=== PATIENT | female | born 1960 | race African-American/Black ===

== ENCOUNTER → 2023-06-04 | Outpatient (CLI) | payer OTHER ==
[~2023-06-04] MED LIST: CLIN300C70 PO; HYDR-4833 PO; LOSA50TA46 PO; SACC250C PO
[2023-06-04 11:33] LABS: Urine Bacteria MOD /hpf (None Seen); Urine Blood 3+ /uL (Negative); Urine Clarity CLOUDY (Clear); Urine Color Yellow (Yellow); Urine Mucus FEW (None Seen); Urine Protein, UAD 1+ (Negative); Urine Specific Gravity 1.027 (1.001-1.035); Urine Urobilinogen Normal (Negative); Urine WBC 35 /hpf (0 - 5)
[2023-06-04 11:47] LABS: Chloride 111 mmol/L (98-107); Potassium 4.4 mmol/L (3.5-5.1); Sodium 140 mmol/L (136-145)
[2023-06-04 11:48] LABS: Anion Gap 7 (5-15); Calcium 9.3 mg/dL (8.5-10.1); Carbon Dioxide 22 mmol/L (20-30)
[2023-06-04 11:53] LABS: BUN/Creatinine Ratio 13.3 (10.0-20.0); Blood Urea Nitrogen 13 mg/dL (9-23); Glucose 103 mg/dL (74-106); Triglycerides 62 mg/dL (< 150)
[2023-06-04 11:54] LABS: LDL Cholesterol 84 mg/dL (< 100)
[2023-06-04 11:55] LABS: Cholesterol 182 mg/dL (< 200); HDL Cholesterol 77 mg/dL (40-59)
== END | disposition home or self-care (01) ==
LOC: LAB 10:59
PROVIDERS: ATTEND Internal Medicine
DX: I12.9 Hypertensive chronic kidney disease with stage 1 through stage 4 chronic kidney disease, or unspecified chronic kidney disease (principal); N18.31 Chronic kidney disease, stage 3a; E89.2 Postprocedural hypoparathyroidism; E66.01 Morbid (severe) obesity due to excess calories
CPT/HCPCS: 36415; 80048; 80061; 81001; 82306

== ENCOUNTER → 2023-07-18 | Outpatient (CLI) | payer OTHER ==
[2023-07-18 14:13] LABS: Protein, Urine 29.7 mg/dL (0.0-11.9)
[2023-07-18 14:16] LABS: Creatinine, Urine 63.14 mg/dL (30.0-125.0); Urine Protein/Creatinine Ratio 0.47
[2023-07-18 14:24] LABS: Urine Bacteria FEW /hpf (None Seen); Urine Blood 2+ /uL (Negative); Urine Clarity HAZY (Clear); Urine Color Colorless (Yellow); Urine Protein, UAD TRACE (Negative); Urine Specific Gravity 1.013 (1.001-1.035); Urine Urobilinogen Normal (Negative); Urine WBC 9 /hpf (0 - 5); Urine pH 6.5 (5.0-8.0)
== END | disposition home or self-care (01) ==
LOC: LAB 13:43
PROVIDERS: ATTEND Internal Medicine
DX: Z12.11 Encounter for screening for malignant neoplasm of colon (principal); N39.0 Urinary tract infection, site not specified; R80.9 Proteinuria, unspecified
CPT/HCPCS: 81001; 82570; 84156; 87086

== ENCOUNTER → 2023-08-14 | Outpatient (CLI) | payer OTHER | END | disposition home or self-care (01) | LOC: LAB 13:09 | PROVIDERS: ATTEND Internal Medicine | DX: Z12.11 Encounter for screening for malignant neoplasm of colon (principal) | CPT/HCPCS: 82270 ==

== ENCOUNTER 2024-01-06 10:50 | Emergency (ER) | payer OTHER ==
[~2024-01-06] VITALS: Ht 154.9 cm; Wt 145.0 kg
[~2024-01-06 10:50] MED LIST changes: +CLIN1CAP70 PO; -CLIN300C70 PO; +LOSA-534 PO; -LOSA50TA46 PO
[2024-01-06] MEDS: cloNIDine HCL 0.1 MG TAB PO ONE ×2 (11:30→12:08)
[2024-01-06 11:43] VITALS: TEMP 98.9
[2024-01-06 11:46] LABS: Basophils # (auto) 0 10 ^3/uL (0-0.2); Basophils % (auto) 0.5 % (0.0-2.0); Eosinophils # (auto) 0.2 10 ^3/uL (0-0.8); Eosinophils % (auto) 4.3 % (0.0-7.0); Hematocrit 39.5 % (36.0-46.0); Hemoglobin 13.1 g/dL (12.2-16.2); Lymphocytes # (auto) 1.3 10 ^3/uL (0.4-5.4); Lymphocytes % (auto) 36.1 % (10.0-50.0); Mean Corpuscular Hemoglobin 29.5 pg (28.0-32.0); Mean Corpuscular Hgb Conc. 33.2 g/dL (32.0-36.0); Mean Corpuscular Volume 88.9 fL (80.0-100.0); Monocytes # (auto) 0.3 10 ^3/uL (0-1.3); Monocytes % (auto) 8.6 % (0.0-12.0); Neutrophils # (auto) 1.9 10 ^3/uL (1.6-8.6); Neutrophils % (auto) 50.5 % (37.0-80.0); Nucleated Red Blood Cells % 0.1 %; Red Blood Cells 4.44 10^6/uL (4.0-5.20); Red Cell Distribution Width 15.4 % (11.8-14.3); White Blood Cell 3.7 10^3/uL (4.4-10.8)
[2024-01-06] MEDS: PANTOPRAZOLE 40 MG/10 ML VIAL INJ IV ONE (12:08)
[2024-01-06] MEDS: ONDANSETRON HCL 4 MG/2 ML VIAL IV ONE (12:08)
[2024-01-06] MEDS: MORPHINE SULFATE 4 MG/ML SYR/VIAL IV ONE (12:09)
[2024-01-06 12:22] LABS: Alanine Aminotransferase 14 U/L (7-40); Albumin 4.3 g/dL (3.2-4.8); Alkaline Phosphatase 119 U/L (46-116); Anion Gap 12 (5-15); Aspartate Aminotransferase 11 U/L (13-40); Bilirubin, Total 0.5 mg/dL (0.2-1.0); Blood Urea Nitrogen 9 mg/dL (9-23); Calcium 9.3 mg/dL (8.7-10.4); Carbon Dioxide 21 mmol/L (20-30); Chloride 109 mmol/L (98-107); Glucose 126 mg/dL (74-106); Lipase 36 U/L (12-53); Potassium 3.8 mmol/L (3.5-5.1); Sodium 142 mmol/L (136-145); Total Protein 7.5 g/dL (5.7-8.2)
[2024-01-06 12:27] LABS: COVID19 ANTIGEN SOFIA FIA NEGATIVE (NEGATIVE)
[2024-01-06 13:15] VITALS: O2SAT 99
[2024-01-06 13:20] VITALS: BP 162/88; PULSE 101; RESP 15
== END 2024-01-06 13:24 | disposition home or self-care (01) ==
LOC: ER 10:50
DX: R10.13 Epigastric pain (principal); I10 Essential (primary) hypertension; Z98.890 Other specified postprocedural states; Z79.899 Other long term (current) drug therapy; Z20.822 Contact with and (suspected) exposure to COVID-19
CPT/HCPCS: 36415; 74176; 80053; 83690; 85025; 87426; 96374; 96375; 99285; J2270; J2405; J2470; J7030